=== PATIENT | male | born 1970 | race Caucasian/White ===

== ENCOUNTER → 2021-03-01 | Outpatient (CLI) | payer OTHER | LOC: M LABSMTC 11:39 | PROVIDERS: ATTEND Anesthesiology | DX: Z11.52 Encounter for screening for COVID-19 (principal) ==

== ENCOUNTER 2021-03-03 06:55 | Day surgery (SDC) | payer OTHER ==
[~2021-03-03] VITALS: Ht 175.3 cm; Wt 139.7 kg
[~2021-03-03 06:55] MED LIST: NS 1,000 ML IV ONE
--- NOTE | 2021-03-03 08:20 | ROOR ---
Patient Name: Yosef Bell Procedure Date: 03/03/2021 8:01 AM Date of : 1970 Age: 51 Room: [facility] Gender: Male Note Status: Finalized Procedure: Total Colonoscopy to Cecum + ileoscopy Indications: Screening for colorectal malignant neoplasm Providers: Stepan Lowery MD Referring MD: Jimenez Nguyen Requesting Provider: Medicines: Monitored Anesthesia Care Complications: No immediate complications. Procedure: Pre-Anesthesia Assessment: - The heart rate, respiratory rate, oxygen saturations, blood pressure, adequacy of pulmonary ventilation, and response to care were monitored throughout the procedure. The Colonoscope was introduced through the anus and advanced to the terminal ileum, with identification of the appendiceal orifice and IC valve. The colonoscopy was performed without difficulty. The patient tolerated the procedure well. The quality of the bowel preparation was excellent. Findings: The perianal and digital rectal examinations were normal. Non-bleeding internal hemorrhoids were found during retroflexion. The hemorrhoids were small and Grade I (internal hemorrhoids that do not prolapse). No other significant abnormalities were identified in a careful examination of the remainder of the colon. The exam was otherwise without abnormality on direct and retroflexion views. The terminal ileum appeared normal. Impression: - Non-bleeding internal hemorrhoids. - The examination was otherwise normal on direct and retroflexion views. - The examined portion of the ileum was normal. - No specimens collected. - The exam was otherwise normal to the cecum. Recommendation: - Patient has a contact number available for emergencies. The signs and symptoms of potential delayed complications were discussed with the patient. Return to normal activities tomorrow. Written discharge instructions were provided to the patient. - High fiber diet. - Discharge patient to home. - Continue present medications. - Repeat colonoscopy in 10 years for screening purposes. - Return to referring physician. - The findings and recommendations were discussed with the patient's family. Procedure Code(s): --- Professional --- 90537, Colonoscopy, flexible; diagnostic, including collection of specimen(s) by brushing or washing, when performed (separate procedure) Diagnosis Code(s): --- Professional --- Z12.11, Encounter for screening for malignant neoplasm of colon K64.0, First degree hemorrhoids CPT copyright 2019 [employer]. All rights reserved. The codes documented in this report are preliminary and upon tractor drill operator review may be revised to meet current compliance requirements. Stepan Lowery MD Stepan Lowery MD 03/03/2021 8:19:58 AM Electronically signed by Stepan Lowery MD Number of Addenda: 0 Note Initiated On: 03/03/2021 8:01 AM Estimated Blood Loss: Estimated blood loss: none.
[2021-03-03 08:40] VITALS: BP 140/84
[2021-03-03] MEDS ORDERED: propofoL 200 MG/20 ML VIAL As Ordered ONE (08:49)
== END 2021-03-03 08:44 | disposition home or self-care (01) ==
LOC: M OPP 06:55
PROVIDERS: ATTEND Internal Medicine Gastroenterology
DX: Z12.11 Encounter for screening for malignant neoplasm of colon (principal); K64.0 First degree hemorrhoids; E78.5 Hyperlipidemia, unspecified; M19.90 Unspecified osteoarthritis, unspecified site; G47.30 Sleep apnea, unspecified; F17.220 Nicotine dependence, chewing tobacco, uncomplicated; Z87.820 Personal history of traumatic brain injury; Z88.5 Allergy status to narcotic agent

== ENCOUNTER 2023-04-04 14:38 | Emergency (ER) | payer OTHER ==
[~2023-04-04] VITALS: Ht 177.8 cm; Wt 145.5 kg
[2023-04-04 14:40] VITALS: BP 136/83; TEMP 98; O2SAT 96
[2023-04-04] MEDS ORDERED: BENA25CA4 PO (14:51)
[2023-04-04] MEDS ORDERED: PRED20TA PO (16:30)
[2023-04-04] MEDS ORDERED: predniSONE 20 MG TAB PO ONE (16:30)
== END 2023-04-04 16:50 | disposition home or self-care (01) ==
LOC: M ED 14:38
DX: L50.0 Allergic urticaria (principal); T39.395A Adverse effect of other nonsteroidal anti-inflammatory drugs [NSAID], initial encounter; G47.33 Obstructive sleep apnea (adult) (pediatric); Z88.6 Allergy status to analgesic agent; Z88.8 Allergy status to other drugs, medicaments and biological substances
CPT/HCPCS: 99283; J7512

== ENCOUNTER 2024-08-26 19:08 | Emergency (ER) | payer OTHER ==
[~2024-08-26] VITALS: Ht 154.9 cm; Wt 55.4 kg
[~2024-08-26 19:08] MED LIST changes: +BENA25CA4 PO; -NS 1,000 ML IV ONE; +PRED20TA PO
[2024-08-26 19:16] VITALS: BP 123/74; TEMP 98.3; O2SAT 100
[2024-08-26] MEDS ORDERED: AMOX875T PO (19:43)
[2024-08-26] MEDS ORDERED: CIPRHCOTIC OTIC (19:44)
[2024-08-26] MEDS ORDERED: AMOXICILLIN 500 MG CAP PO ONE (19:55)
[2024-08-26] MEDS: AMOXICILLIN 500 MG CAP PO ONE (20:03)
== END 2024-08-26 20:24 | disposition home or self-care (01) ==
LOC: M ED 19:08
DX: H60.92 Unspecified otitis externa, left ear (principal); H66.92 Otitis media, unspecified, left ear; Z88.5 Allergy status to narcotic agent; Z79.2 Long term (current) use of antibiotics; Z79.52 Long term (current) use of systemic steroids